=== PATIENT | male | born 1950 | race Caucasian/White ===

== ENCOUNTER 2018-01-09 06:50 | Day surgery (SDC) | payer MEDICARE ==
[2018-01-08 15:21] VITALS: BMI 35.5
--- NOTE | 2018-01-09 07:58 | HP ---
SHORT STAY HISTORY AND PHYSICAL DATE OF ADMISSION: 01/09/2018 HISTORY OF PRESENT ILLNESS: This is a 67-year-old male with a history of colon polyp and anemia. Th e patient has no history of hematochezia or any melena. The patient has had colon polyps removed. H alexis also has family history of colon cancer. His multiple colon polyps removed in 2013. The patient w as advised to come back in 2016 for a colonoscopy, but the patient did not come back to me. The patie nt ____ recently. He had no dyspepsia. No heartburn, no abdominal pain. The patient comes in for a n EGD and a colonoscopy because of anemia and also history of colon polyp. ALLERGIES: None. SOCIAL HISTORY: Patient does not smoke or drink alcohol. MEDICAL ILLNESSES: 1. Hypertension. 2. Colon polyp. 3. Diverticular disease. SURGERIES: 1. Undescended testes. 2. Cataracts. 3. Hernia repair. PHYSICAL EXAMINATION: VITAL SIGNS: Pulse is 70, blood pressure 140/96. HEENT: Conjunctivae clear. CARDIOVASCULAR SYSTEM: First and second heart sounds normal. LUNGS: Clear to auscultation. ABDOMEN: Soft to palpate. No organomegaly. No tenderness. No masses. ADMITTING DIAGNOSES: 1. Anemia. 2. History of colon polyp and family history of colon cancer. PLAN: EGD and colonoscopy.
[2018-01-09] MEDS ORDERED: Bisacodyl 10 MG SUPP PR SCH (11:15)
--- NOTE | 2018-01-09 12:20 | OP ---
DATE OF PROCEDURE: 01/09/2018 SURGEON: Roby Jorgensen M.D. OPERATIVE PROCEDURE: Colonoscopy with polypectomy. PREOPERATIVE DIAGNOSES: A 67-year-old male with a history of colon polyps and family histo ry of colon cancer. He has mild anemia. The patient is undergoing a colonoscopy. POSTOPERATIVE DIAGNOSES: 1. Hemorrhoids. 2. Sigmoid diverticular disease. 3. Sessile polyps x2, sigmoid colon. 4. A sessile polyp, distal transverse colon. 5. Retained fecal material which had to be washed out and the right colon could not be completely wa shed out. PROCEDURE NOTE: The patient was placed on his left lateral position and was given sedation by Anesth esia Department. A rectal exam was done before the scope was advanced into the rectum. No other les ion felt on rectal exam. A Pentax video colonoscope was introduced into the rectum and advanced all the way to the right colon. The patient had no solid stool, but he has diffuse mucosal coating of th e entire colon fecal material. Water was used to washout. The appendiceal orifice, ileocecal valve, cecum, no pathology seen. Advanced to the cecum to ascending colon, hepatic flexure, and transverse colon, no lesions. There was a sessile polyp over the distal transverse colon just past the splenic flexure. This was removed by cautery with good hemostasis. The descending colon, no pathology seen . The sigmoid colon showed mild diverticulitis. There were 2 sessile polyps in sigmoid colon area. Both were removed by cautery with good hemostasis. Retroflexion of scope in the rectum revealed he morrhoids.
--- NOTE | 2018-01-09 12:26 | OP ---
DATE OF PROCEDURE: 01/09/2018 OPERATIVE PROCEDURE: Esophagogastroduodenoscopy with biopsy. PREOPERATIVE DIAGNOSES: Anemia, acid reflux. POSTOPERATIVE DIAGNOSES: 1. Sessile polyp in descending duodenum, biopsied. 2. Sessile polyp over the gastric antrum, biopsied. 3. Small hiatus hernia. 4. Irregular Z-line. PROCEDURE IN DETAIL: The patient was placed on his left lateral position and was given sedation by A nesthesia Department. A Pentax video gastroscope under direct vision was passed down the oropharynx, past the GE junction, into the stomach and subsequently into the descending duodenum. The esophagea l mucosa appears normal. However, over the distal esophagus, the Z-line is irregular and shows mild erythema and edema. This was biopsied. The patient has a small hiatus hernia. Retroflexion failed to show pathology in the fundus and cardia. The gastric body, no pathology seen. The gastric antrum showed a sessile polyp at the pyloric channel. This was biopsied. The duodenal bulb, no pathology seen. The descending duodenum shows a 1 cm size sessile polyp. This was biopsied. The stomach was decompressed and the scope removed. DISCHARGE PLANNING: This is a 67-year-old male who came for an EGD and a colonoscopy. EGD showed irregular Z-line, gastric polyp, polyp in the descending duodenum. The colonoscopy showed si gmoid diverticular disease, sessile polyp at sigmoid colon and transverse colon. He underwent colono scopy, polypectomy and EGD with biopsy. DISCHARGE RECOMMENDATIONS: 1. The patient is advised to call me if he develops abdominal pain, hematochezia, or fever. 2. In the absence of any of the above symptoms, the patient will come back to me in 2 weeks. Vishal daly plan to repeat a colonoscopy next year, because of some retained stool.
[2018-01-09] MEDS ORDERED: PROPOFOL 200 MG/20 ML VIAL ONE (12:45)
== END 2018-01-09 12:08 | disposition home or self-care (01) ==
LOC: SDC 06:50
PROVIDERS: ATTEND Internal Medicine Gastroenterology
PROC: 0D5N8ZZ Destruction of Sigmoid Colon, Via Natural or Artificial Opening Endoscopic (ICD-10-PCS; principal; 2018-01-09)
PROC: 0D5L8ZZ Destruction of Transverse Colon, Via Natural or Artificial Opening Endoscopic (ICD-10-PCS; 2018-01-09)
PROC: 0DB98ZX Excision of Duodenum, Via Natural or Artificial Opening Endoscopic, Diagnostic (ICD-10-PCS; 2018-01-09)
PROC: 0DB68ZX Excision of Stomach, Via Natural or Artificial Opening Endoscopic, Diagnostic (ICD-10-PCS; 2018-01-09)
PROC: 0DB58ZX Excision of Esophagus, Via Natural or Artificial Opening Endoscopic, Diagnostic (ICD-10-PCS; 2018-01-09)
DX: K63.5 Polyp of colon (principal); K64.9 Unspecified hemorrhoids; K57.30 Diverticulosis of large intestine without perforation or abscess without bleeding; K29.50 Unspecified chronic gastritis without bleeding; K31.89 Other diseases of stomach and duodenum; K44.9 Diaphragmatic hernia without obstruction or gangrene; D50.0 Iron deficiency anemia secondary to blood loss (chronic); K21.0 Gastro-esophageal reflux disease with esophagitis; I10 Essential (primary) hypertension; Z79.899 Other long term (current) drug therapy; Z86.010 Personal history of colon polyps; Z80.0 Family history of malignant neoplasm of digestive organs
CPT/HCPCS: 88305; 88312; 88313; J2704

== ENCOUNTER 2018-10-05 11:33 | Outpatient (CLI) | payer MEDICARE ==
--- NOTE | 2018-10-05 13:25 | MRI ---
MRI RIGHT KNEE WITHOUT CONTRAST: INDICATION: Right knee pain for 1 year. FINDINGS: There are marginal osteophytes affecting all major compartments of the right knee. There is diffuse moderate chondrosis involving the medial femorotibial joint compartment as well as the medial aspect of the patellofemoral compartment. There is a complex degenerative-type tear involving the posterior horn and body of the medial meniscu s. There is a horizontally oriented tear involving the posterior horn, body, and anterior horn of th e lateral meniscus. There is an anterior parameniscal cyst seen adjacent to the anterior horn of the lateral meniscus measuring 1.4 cm. The ACL, PCL, MCL, and LCLC are intact. There is a mild slightly semimembranosus-medial gastrocnemius popliteal cyst. There is a nodular T2 hyperintense, T1 hypointense subcutaneous nodule within the subcutaneous tissue s of the posterior medial proximal foreleg measuring 2.1 x 0.5 cm suspicious for a small lymph node. There is suspicion for a small fatty hilum seen along the posterior and inferior aspect of the lesio n. No additional enlarged lymph nodes are evident. IMPRESSION: 1. Mild osteoarthrosis of the right knee. 2. Medial and lateral meniscal tears. 3. Subcutaneous nodule seen involving the posteromedial aspect of the proximal foreleg suspicious fo r a small lymph node. Recommend correlation with the clinical exam. This also may reflect a small l ymphovascular malformation. POS: [place]
== END 2018-10-05 11:34 | disposition home or self-care (01) ==
LOC: SCSMRI 11:33
PROVIDERS: ATTEND Orthopaedic Surgery
DX: S83.241A Other tear of medial meniscus, current injury, right knee, initial encounter (principal); M17.11 Unilateral primary osteoarthritis, right knee

== ENCOUNTER 2025-04-10 11:31 | Outpatient (CLI) | payer MEDICARE, OTHER ==
[2025-04-10 13:40] LABS: Estimated GFR - POC 70.0
== END 2025-04-10 11:32 | disposition home or self-care (01) ==
LOC: CT 11:31
PROVIDERS: ATTEND Internal Medicine Gastroenterology
DX: R63.4 Abnormal weight loss (principal)
CPT/HCPCS: 36415; 71260; 74177; 82565